=== PATIENT | female | born 1990 | race Two or more races ===

== ENCOUNTER 2020-08-30 17:48 | Emergency (ER) | payer OTHER ==
[~2020-08-30] VITALS: Ht 152.4 cm; Wt 79.0 kg
[2020-08-30 17:56] VITALS: BP 129/89
[2020-08-30] MEDS ORDERED: ACETAMINOPHEN 325MG TABLET PO ONE (19:00)
== END 2020-08-30 20:19 | disposition left against medical advice (07) ==
LOC: ER 17:48
DX: R06.02 Shortness of breath (principal); M79.10 Myalgia, unspecified site
CPT/HCPCS: 93005; 99281